=== PATIENT | male | born 1980 | race Caucasian/White ===

== ENCOUNTER 2017-05-12 12:58 | Emergency (ER) | payer SELFPAY ==
[~2017-05-12] VITALS: Ht 170.2 cm; Wt 77.5 kg
[2017-05-12 13:03] VITALS: BP 139/98; PULSE 87; RESP 16; TEMP 98.3; O2SAT 99
[2017-05-12] MEDS ORDERED: OCUF0.3D EACH EYE (13:18)
[2017-05-12] MEDS ORDERED: ERYTOIN10 EACH EYE (13:49)
--- NOTE | 2017-05-12 13:49 | PD ---
HPI Chief Complaint: Eye Problems/Injury Time Seen by Provider: 13:15 Travel History International Travel<30 days: No Contact w/Intl Traveler<30days: No Traveled to known affect area: No History of Present Illness HPI 36-year-old male presents emergency department for reevaluation of bilateral conjunctivitis which she stated is not improving with his current antibiotic drops. Symptom onset 3 days ago. Patient reports girlfriend currently has conjunctivitis. He was seen and evaluated in urgent care clinic yesterday and put on Cipro flaxseeds and drops. He reports since using this drops his eyes have become increasingly more red and painful. He denies visual disturbances. He reports increased eye irritation and pain. PFSH Past Medical History Depression: Yes Cancer: No Cardiovascular Problems: Yes (htn no meds) Diabetes: No Diminished Hearing: No Endocrine: No Gastrointestinal Disorders: No Genitourinary: No Hepatitis: No Hiatal Hernia: No Hypertension: Yes (no meds) Immune Disorder: No Medical other: Yes (VOMITING WHEN UPSET) Musculoskeletal: No Neurologic: No Psychiatric: Yes (SOMEWHAT CLAUSTROPHOBIC) Reproductive: No Respiratory: No Immunizations Current: Yes Thyroid Disease: No Tetanus Vaccination: < 5 Years Influenza Vaccination: No Past Surgical History AICD: No Joint Replacement: No Oral Surgery: Yes (ADENOIDS REMOVED) Pacemaker: No Other Surgery: Yes Social History Alcohol Use: No Tobacco Use: No Substance Use: No Allergies-Medications (Allergen,Severity, Reaction): Coded Allergies: Penicillin (Unverified Allergy, Severe, "I ", 05/12/17) Reported Meds & Prescriptions Reported Meds & Active Scripts Active Reported Ocuflox Opth Drops (Ofloxacin Opth Drops) 0.3 % Drops 1 Drop EACH EYE Q4HR Review of Systems Except as stated in HPI: all other systems reviewed are Neg Physical Exam Narrative GENERAL: Well-nourished, well-developed patient. SKIN: Focused skin assessment warm/dry. HEAD: Normocephalic. EYES: Pupils are equal round and reactive. No scleral icterus. Eyes are moderately injected. EOMs intact. Painless EOMs. Cleared drainage from both eyes. No fluorescein dye uptake. Visual acuity: Right eye 20/25, left eye 20/ 20, both eyes 20/20 NECK: Supple, trachea midline. No JVD or lymphadenopathy. CARDIOVASCULAR: Regular rate and rhythm without murmurs, gallops, or rubs. RESPIRATORY: Breath sounds equal bilaterally. No accessory muscle use. GASTROINTESTINAL: Abdomen soft, non-tender, nondistended. MUSCULOSKELETAL: No cyanosis, or edema. BACK: Nontender without obvious deformity. No CVA tenderness. Data Data Last Documented VS Vital Signs Date Time Temp Pulse Resp B/P Pulse Ox O2 Delivery O2 Flow Rate FiO2 05/12/17 13:03 98.3 87 16 139/98 99 MDM Medical Decision Making Medical Screen Exam Complete: Yes Emergency Medical Condition: Yes Differential Diagnosis Bacterial conjunctivitis, viral conjunctivitis, ocular irritation due to eyedrops Narrative Course 36-year-old male presents emergency department for reevaluation of conjunctivae is. Symptoms onset 3 days ago. Patient's girlfriend with similar symptoms. He reports he was seen in urgent care clinic yesterday and put on ciprofloxacin drops. He reports increased eye redness and irritation since using the drops. On exam today he has moderate injection to both eyes. Normal visual acuity. No fluorescein dye uptake. Patient will be changed to erythromycin ophthalmic ointment. Instructed to follow up with ophthalmology. Patient agrees to this plan. Diagnosis Primary Impression: Conjunctivitis Qualified Code: H10.9 - Conjunctivitis of both eyes, unspecified conjunctivitis type Referrals: DR OLGA GUZMAN Additional Instructions: Use the ophthalmic ointment as prescribed. Make an appointment for follow-up with ophthalmology for recheck in one to 2 days. Return to emergency department if new or worsening symptoms. Scripts Erythromycin Opth Oint 5 Mg/Gm Oint1 Applic EACH EYE QID #1 TUBE Ref 0 Prov:Helga Berger 05/12/17 Disposition: 01 DISCHARGE HOME Condition: Stable Helga Berger May 12, 2017 13:49
[2017-05-20] MEDS ORDERED: ZIRG0.15 OP (11:33)
[2017-05-20] MEDS ORDERED: DOXY100C PO (12:10)
[2017-05-20] MEDS ORDERED: ZITHTAB PO (12:10)
== END 2017-05-12 14:05 | disposition home or self-care (01) ==
LOC: PHEFT 12:58
DX: H10.9 Unspecified conjunctivitis (principal)
CPT/HCPCS: 99283